=== PATIENT | male | born 1945 | race Caucasian/White ===

== ENCOUNTER 2025-04-20 17:10 | Emergency (ER) | payer OTHER, SELFPAY ==
[2025-04-20 17:13] VITALS: BP 154/73
[2025-04-20 17:46] LABS: Hematocrit 36.3 % (39.0-52.0); Hemoglobin 11.8 g/dL (13.0-18.0); Mean Corp Hgb Conc. 32.5 g/dL (33.0-37.0); Mean Corpuscular Volume 94.8 fL (80.0-94.0); Nucleated Red Blood Cells % 0 % (-); Platelet Count 149 10^3/uL (130-400); Red Cell Dist. Width 14.6 % (11.5-14.5)
[2025-04-20 18:17] LABS: ALT (SGPT) < 10 U/L (0-50); AST (SGOT) 16 U/L (17-59); Albumin 4.5 g/dl (3.5-5.0); Alkaline Phosphatase 143 U/L (38-126); Blood Urea Nitrogen 24 mg/dl (9-20); Calcium 10.1 mg/dl (8.4-10.2); Carbon Dioxide 22 mmol/L (22-30); Chloride 107 mmol/L (98-107); Glucose 86 mg/dl (70-99); Potassium 4.4 mmol/L (3.5-5.1); Sodium 137 mmol/L (135-145); Total Protein 7.6 g/dl (6.3-8.2); eGFR 55.19
[2025-04-20 19:10] VITALS: BP 152/91
[2025-04-20 19:37] LABS: Urine Character Clear (Clear)
--- NOTE | 2025-04-20 19:40 | ED.GENMED ---
History of Present Illness
General
Chief Complaint: Urinary Symptoms
Time Seen by Provider: 04/20/25 19:04
History of Present Illness
History of Present Illness:
79-year-old male history of hypertension, hyperlipidemia, CAD with cardiac stents, Nielsen catheter in place, cancer status post left nephrectomy presenting with hematuria starting around to have prior to arrival. Patient states that he noticed blood
clots in Nielsen bag and states that urine was coming around Nielsen from penis. Patient reports suprapubic abdominal pain starting today with associated nausea. Patient denies vomiting, fever, chills or flank pain. Patient is not on blood thinners.
Patient states he is currently being treated for UTI with Keflex which he has been taking as prescribed. Patient states he was seen at [facility] 2 days ago for similar symptoms, had Nielsen exchanged.
Phy Exam
Physical Exam
Physical Exam:
General: Alert, no acute distress
Head: NCAT
Eyes: clear conjunctiva
Neck: supple
Cardiac: regular rate and rhythm, no murmur
Lungs: clear to auscultation bilaterally. No wheezes, rales, or rhonchi. Speaking full unlabored sentences. No respiratory distress.
Abdomen: soft, nondistended suprapubic tenderness. No rebound or guarding. No CVA tenderness bilaterally
MSK: no lower extremity edema bilaterally. No deformity
Skin: warm, dry
Neuro: Alert and oriented x3. no focal deficits
Nielsen catheter in place with no urine coming around Nielsen from penis. Straw yellow urine in bag with no blood or clots
Course
Orders/Labs/Results
Orders:
Orders
04/20/25 17:35
CMP [Comprehensive Metabolic Panel] Urgent
Complete Blood Count/With Diff Urgent
04/20/25 19:28
UA Reflex to Culture [Urinalysis Reflex To Culture] Urgent
Date Specimen was Collected: 04/20/25
Time Specimen was Collected: 19:25
Urine Microscopic Reflex Cult Urgent
Urine Culture Urgent
ISAIAH Source: U
Specimen Description:
Date Specimen was Collected: 04/20/25
Time Specimen was Collected: 19:25
04/20/25 20:20
Ciprofloxacin HCl [Cipro] 500 mg PO ONCE STA
Abnormal Lab Results
04/20/25 04/20/25
17:35 19:28
RBC 3.83 L 10^6/uL
(4.70-6.10)
Hgb 11.8 L g/dL
(13.0-18.0)
Hct 36.3 L %
(39.0-52.0)
MCV 94.8 H fL
(80.0-94.0)
MCHC 32.5 L g/dL
(33.0-37.0)
RDW 14.6 H %
(11.5-14.5)
MPV 12.5 H fL
(7.4-10.4)
Abs Immat Gran (auto) 0.1 H 10^3/uL
(0-0.05)
Immature Gran % 0.8 H %
(0-0.5)
BUN 24 H mg/dl
(9-20)
AST 16 L U/L
(17-59)
Alkaline Phosphatase 143 H U/L
(38-126)
Ur Occult Blood Reflex 4+ A
(Negative)
Leukocyte Esterase Rfl 1+ A
(Negative)
Urine RBC 16-20 A /HPF
(0-2)
Urine Bacteria (Reflex) Few A
(Negative)
Urine Albumin (Reflex) 2+ A
(Neg - Trace)
04/20/25 17:35
04/20/25 17:35
Vital Signs
Initial and Last Documented VS:
Initial Vital Signs
Temp Pulse Resp BP Pulse Ox
98.3 F 65 20 154/73 95
04/20/25 17:13 04/20/25 17:13 04/20/25 17:13 04/20/25 17:13 04/20/25 17:13
Last Documented Vital Signs
Temp Pulse Resp BP Pulse Ox
98.3 F 84 18 142/55 97
04/20/25 17:13 04/20/25 20:03 04/20/25 20:03 04/20/25 20:00 04/20/25 20:00
MDM/Problems Addressed
Differential Diagnosis Includes:
UTI, GISELLE, electrolyte abnormality, anemia
MDM/Problems Addressed:
Results reviewed. WBC 6.5. Anemia at 11.8, unknown baseline. Creatinine and electrolytes within normal limits. UA positive for RBC, leukocyte esterase and bacteria but negative for nitrite. Could be contamination from chronic indwelling Nielsen
but due to symptoms concerning for urinary tract infection. Will start patient on Cipro. Patient's daughter showed me UA at [facility] on 04/11 that grew out E. coli but no sensitivities seen on patient portal. Urine straw yellow during entire ER
visit with no episodes of hematuria or urinating around nielsen. Urinating around nielsen likely due to blood clot causing obstruction which has now resolved. No indication to upsize nielsen at this time. Given patient tolerating p.o. with normal white
count, afebrile, not tachycardic otherwise well-appearing, will switch to Cipro, stable for discharge with urology follow up next week. Discussed return precautions. Pt expressed verbal understanding.
*Pulse Oximetry
SaO2: 99
Oxygen Mode of Delivery: Room air
Patient hypoxic: no
*Critical Care Note
Total Time (30-74mins, 75-104mins- exclusive of procedures): Not Applicable
ED Attending Note
-
Portions of this chart may have been created with voice recognition software.� Occasional wrong word or��sound alike� substitutions may have occurred due to the inherent limitations of voice recognition software.
Discharge Plan
Departure
Patient Disposition: Home (Routine Discharge)
Date of Disposition: 04/20/25
Time of Disposition: 20:27
Patient with high blood pressure during this ER visit?: Yes
Discharge Problem:
Acute UTI
Instructions: Urinary Tract Infection, Adult (DC), BLOOD PRESSURE
Prescriptions:
New
ciprofloxacin HCl [Cipro] 500 mg tablet
500 mg PO Q12H 10 Days Qty: 20 0RF
Referrals:
Otf Mahoney DO [Family Provider, Internal Medicine]
Skip Lester MD [Active, Urology]
Activity Restrictions/Additional Instructions:
Stop taking Keflex. Take Cipro twice daily for the next 10 days
Follow-up with urology next week
Return to emergency department for fever, chills, vomiting, clogged nielsen catheter or new/worsening symptoms
Interventions
Interventions:
*Risk Screen - Suicide Last Done: 04/20/25 17:13
*General Assessment Last Done: 04/20/25 17:13
*Neglect/Abuse Screening Last Done: 04/20/25 18:39
*ED- Fall Risk Assessment Last Done: 04/20/25 18:39
*ED COVID-19 Vaccine History Last Done: 04/20/25 18:39
*Nursing Disposition Last Done: 04/20/25 20:42
ED-Male Genitourinary Assessment Last Done: 04/20/25 18:39
Discharge Date and Time
Discharge Date/Time: 04/20/25 20:51
Print Language: PORTUGUESE
[2025-04-20 19:59] LABS: Urine Squamous Cell 0-2 /LPF (Few)
[2025-04-20 20:00] VITALS: BP 142/55
[2025-04-20 20:00] LABS: Urine Red Blood Cell 16-20 /HPF (0-2)
[2025-04-20] MEDS: CIPRO 500 MG PO (20:31)
== END 2025-04-20 20:51 | disposition home or self-care (01) ==
LOC: EMR 17:10
PROVIDERS: Student in an Organized Health Care Education/Training Program; EMERGENCY PHYSICIAN Emergency Medicine; FAMILY PHYSICIAN Internal Medicine
DX: N39.0 Urinary tract infection, site not specified (principal); R31.0 Gross hematuria; I25.10 Atherosclerotic heart disease of native coronary artery without angina pectoris; I10 Essential (primary) hypertension; E78.5 Hyperlipidemia, unspecified; D64.9 Anemia, unspecified; Z95.5 Presence of coronary angioplasty implant and graft; Z90.5 Acquired absence of kidney
CPT/HCPCS: 99283; 80053; 81003; 81015; 85025; 87086